=== PATIENT | male | born 1945 | race Caucasian/White ===

== ENCOUNTER 2018-10-10 08:02 | Day surgery (SDC) | payer OTHER ==
[2018-10-04 10:35] VITALS: BMI 23.3
[2018-10-10] MEDS ORDERED: PROPOFOL 20 ML ONE ×2 (08:14)
[2018-10-10 09:29] VITALS: TEMP 97.5
[2018-10-10 09:58] VITALS: BP 123/76; PULSE 62
--- NOTE | 2018-10-12 12:50 | PATH ---
Surgical Pathology Report Patient Name: KEITH GRIJALVA [facility]. Rec. #: [id number] /Age/Gender: 1945 (Age: 73) / M Account: [id number] Location: [facility] Taken: 10/10/2018 Received: 10/10/2018 Reported: 10/12/2018 Physicians: Saúl Moser M.D. Specimen(s) Received BX POLYP DISTAL SIGMOID COLON Clinical History Family history of colon cancer Postoperative diagnosis: External hemorrhoids, colon polyp Final Diagnosis DISTAL SIGMOID COLON, POLYP, BIOPSY: HYPERPLASTIC POLYP. Electronically Signed Ifeoma Uribe M.D. Gross Description Received in formalin, labeled "biopsy polyp distal sigmoid colon" is a sethi, irregular portion of soft tissue measuring 0.3 cm. in greatest dimension. The specimen is submitted in toto in one cassette. /10/11/2018 saudi10/11/2018
== END 2018-10-10 10:00 | disposition home or self-care (01) ==
LOC: FASU-ENDO 08:02
PROVIDERS: ATTEND Internal Medicine Gastroenterology
PROC: 0DBN8ZX Excision of Sigmoid Colon, Via Natural or Artificial Opening Endoscopic, Diagnostic (ICD-10-PCS; principal; 2018-10-10 08:57)
DX: Z12.11 Encounter for screening for malignant neoplasm of colon (principal); K63.5 Polyp of colon; K64.4 Residual hemorrhoidal skin tags; Z80.0 Family history of malignant neoplasm of digestive organs
CPT/HCPCS: 88305-TC

== ENCOUNTER 2022-09-28 08:38 | Day surgery (SDC) | payer OTHER ==
[2022-09-22 17:20] VITALS: BMI 20.9
[2022-09-28 08:57] VITALS: RESP 18; TEMP 97.4
[2022-09-28 10:44] VITALS: BP 121/74; PULSE 59
== END 2022-09-28 10:45 | disposition home or self-care (01) ==
LOC: FASU-ENDO 08:38
PROVIDERS: ATTEND Internal Medicine Gastroenterology
PROC: 0DB68ZX Excision of Stomach, Via Natural or Artificial Opening Endoscopic, Diagnostic (ICD-10-PCS; 2022-09-28)
PROC: 0DB48ZX Excision of Esophagogastric Junction, Via Natural or Artificial Opening Endoscopic, Diagnostic (ICD-10-PCS; principal; 2022-09-28 09:40)
DX: K29.50 Unspecified chronic gastritis without bleeding (principal); K29.80 Duodenitis without bleeding; K25.9 Gastric ulcer, unspecified as acute or chronic, without hemorrhage or perforation; K31.89 Other diseases of stomach and duodenum; R11.2 Nausea with vomiting, unspecified
CPT/HCPCS: 88305-TC; 88342-TC

== ENCOUNTER 2023-09-15 08:21 | Day surgery (SDC) | payer OTHER ==
[2023-09-08 17:09] VITALS: BMI 20.9
[2023-09-15] MEDS ORDERED: ETOMIDATE 20 MG/10 ML VIAL IVPUSH ONE (09:27)
[2023-09-15 10:04] VITALS: TEMP 98.1
[2023-09-15 10:12] VITALS: BP 134/74; PULSE 78; RESP 19
== END 2023-09-15 10:40 | disposition home or self-care (01) ==
LOC: FASU-ENDO 08:21
PROVIDERS: ATTEND Internal Medicine Gastroenterology
PROC: 0DBK8ZX Excision of Ascending Colon, Via Natural or Artificial Opening Endoscopic, Diagnostic (ICD-10-PCS; principal; 2023-09-15 09:30)
DX: Z12.11 Encounter for screening for malignant neoplasm of colon (principal); D12.2 Benign neoplasm of ascending colon; Z80.0 Family history of malignant neoplasm of digestive organs
CPT/HCPCS: 88305-TC